=== PATIENT | male | born 1965 | race Caucasian/White ===

== ENCOUNTER 2017-09-03 11:57 | Inpatient (IN) | payer OTHER ==
[2017-09-03 12:15] LABS: BASO # 0.1 10^3/uL (0.0-0.2); BASO % 0.5 % (0.0-1.0); EOS # 0.2 10^3/uL (0.0-0.50); EOS % 1.7 % (0.0-3.0); HEMATOCRIT 48.3 % (42.0-52.0); HEMOGLOBIN 16.6 g/dl (13.5-17.5); IMMATURE GRANULOCYTE % 1.1 % (0-3.0); LYMPH # 2.3 10^3/uL (1.5-4.5); LYMPH % 22.7 % (24.0-44.0); MEAN CORPUSCULAR HEMOGLOBIN 33.1 pg (27.0-33.0); MEAN CORPUSCULAR HGB CONC 34.4 g/dl (32.0-36.5); MEAN CORPUSCULAR VOLUME 96.4 fl (80.0-96.0); MONO # 0.8 10^3/uL (0.0-0.8); MONO % 7.7 % (0.0-5.0); NEUTROPHILS # 6.8 10^3/uL (1.8-7.7); NEUTROPHILS % 66.3 % (36.0-66.0); PLATELET COUNT, AUTOMATED 168 10^3/uL (150-450); RED BLOOD COUNT 5.01 10^6/uL (4.30-6.10); RED CELL DISTRIBUTION WIDTH 13.3 % (11.5-14.5); WHITE BLOOD COUNT 10.3 10^3/uL (4.0-10.0)
[2017-09-03] MEDS: NS 1,000 ML IV ×2 (12:17→14:00)
[2017-09-03 12:32] LABS: INR 0.92; PROTHROMBIN TIME 12.4 SECONDS (12.4-14.5)
[2017-09-03 12:41] LABS: ALBUMIN 3.5 GM/DL (3.2-5.2); ALKALINE PHOSPHATASE 79 U/L (45-117); ALT/SGPT 45 U/L (12-78); ANION GAP 13 MEQ/L (8-16); AST/SGOT 47 U/L (7-37); BILIRUBIN,DIRECT 0.1 MG/DL (0.0-0.2); BILIRUBIN,TOTAL 0.5 MG/DL (0.2-1.0); BLOOD UREA NITROGEN 5 MG/DL (7-18); CALCIUM LEVEL 8.5 MG/DL (8.5-10.1); CARBON DIOXIDE LEVEL 23 MEQ/L (21-32); CHLORIDE LEVEL 106 MEQ/L (98-107); CREATININE FOR GFR 0.81 MG/DL (0.70-1.30); GLOMERULAR FILTRATION RATE > 60.0 (>56); GLUCOSE, FASTING 109 MG/DL (70-100); LIPASE 59 U/L (73-393); POTASSIUM SERUM 3.5 MEQ/L (3.5-5.1); SODIUM LEVEL 142 MEQ/L (136-145)
[2017-09-03] MEDS ORDERED: ISOVUE-370 76% 100ML VIAL (Q9967) As Ordered (12:46)
[2017-09-03] MEDS: HYDROmorphone HCL 1 MG/ML SYRINGE (J1170) IV ×2 (14:42→16:30)
[2017-09-03] MEDS ORDERED: MORPHINE 4 MG/ML 1ML VIAL/SYRINGE (J2270) IV ×2 (15:15)
[2017-09-03] MEDS ORDERED: ONDANSETRON 4MG/2ML VIAL (J2405) IV (15:15)
[2017-09-03] MEDS ORDERED: PERCOCET 5MG/325MG TAB PO ×2 (15:15→19:45)
[2017-09-03] MEDS ORDERED: LORazepam 2 MG TAB PO (15:30)
[2017-09-03] MEDS: ceFAZolin 2 GM/D5W 50 ML IV BAG (J0690 PER 500MG) As Ordered (17:07)
[2017-09-03] MEDS ORDERED: MIDAZOLAM INJ 2 MG/2 ML VIAL (J2250) As Ordered (17:33)
[2017-09-03] MEDS ORDERED: ONDANSETRON 4MG/2ML VIAL (J2405) As Ordered ×2 (17:33→19:50)
[2017-09-03] MEDS ORDERED: NEOSTIGMINE 10 MG/10 ML VIAL (J2710) As Ordered (17:33)
[2017-09-03] MEDS ORDERED: LIDOCAINE 2% INJ 100 MG/5 ML SDV (FOR ANES.) As Ordered (17:33)
[2017-09-03] MEDS ORDERED: GLYCOPYRROLATE INJ 0.2 MG/ML 2 ML VIAL As Ordered (17:33)
[2017-09-03] MEDS ORDERED: dexameTHASONE 4 MG/ML 1ML VIAL (J1100) As Ordered (17:33)
[2017-09-03] MEDS ORDERED: PHENYLephrine HCL 500 MCG/5 ML (100MCG/ML) SYRINGE (J2370) As Ordered (17:33)
[2017-09-03] MEDS ORDERED: fentaNYL 250 MCG/5 ML INJECTION (J3010) As Ordered (17:33)
[2017-09-03] MEDS ORDERED: ePHEDrine SULFATE 25 MG/5 ML(5MG/ML) SYRINGE As Ordered (17:33)
[2017-09-03] MEDS ORDERED: PROPOFOL 200 MG/20 ML VIAL As Ordered (17:33)
[2017-09-03] MEDS ORDERED: ROCURONIUM BROMIDE 50 MG/5 ML VIAL As Ordered (17:33)
[2017-09-03] MEDS ORDERED: METOCLOPRAMIDE INJ 10MG/2ML VIAL (J2765) As Ordered (17:33)
[2017-09-03] MEDS: ceFAZolin 1GM INJ (J0690 PER 500MG) As Ordered (17:40)
[2017-09-03] MEDS ORDERED: HYDROmorphone HCL 2 MG/ML 1ML VIAL (J1170) As Ordered (17:44)
[2017-09-03] MEDS: BUPIVACAINE/EPIN 0.5% 30 ML VIAL As Ordered (19:06)
[2017-09-03] MEDS: ceFAZolin SOD 2 GM in D5W MINI-BAG PLUS 50 ML IV (19:06)
[2017-09-03] MEDS ORDERED: fentaNYL 100 MCG/2 ML INJECTION (J3010) IV (19:45)
[2017-09-03] MEDS ORDERED: MORPHINE 10 MG/ML 1ML VIAL (J2270) IV (19:45)
[2017-09-03] MEDS: ONDANSETRON 4MG/2ML VIAL (J2405) IV (19:52)
[2017-09-03] MEDS: LR 1,000 ML IV (20:30)
[2017-09-03] MEDS: DOCUSATE SODIUM 100 MG CAP PO (21:29)
[2017-09-03] MEDS: PERCOCET 5MG/325MG TAB PO (21:29)
[2017-09-03] MEDS: THIAMINE 100 MG TAB PO (21:29)
[2017-09-03] MEDS ORDERED: PILL CRUSHER/CUTTER 1 EACH XX (22:45)
[2017-09-03] MEDS: ceFAZolin SOD 1 GM in D5W MINI-BAG PLUS 50 ML IV (23:33)
[2017-09-04] MEDS: KETOROLAC 30 MG/ML VIAL (J1885) IV ×3 (01:37→23:20)
[2017-09-04] MEDS: PERCOCET 5MG/325MG TAB PO ×3 (05:21→21:16)
[2017-09-04 07:04] LABS: BASO % 0.1 % (0.0-1.0); HEMATOCRIT 34.4 % (42.0-52.0); IMMATURE GRANULOCYTE % 0.4 % (0-3.0); LYMPH # 0.5 10^3/uL (1.5-4.5); LYMPH % 4.5 % (24.0-44.0); MEAN CORPUSCULAR HGB CONC 34.6 g/dl (32.0-36.5); MEAN CORPUSCULAR VOLUME 95.3 fl (80.0-96.0); MONO # 1.2 10^3/uL (0.0-0.8); MONO % 10.2 % (0.0-5.0); NEUTROPHILS # 9.9 10^3/uL (1.8-7.7); NEUTROPHILS % 84.8 % (36.0-66.0); PLATELET COUNT, AUTOMATED 130 10^3/uL (150-450); RED BLOOD COUNT 3.61 10^6/uL (4.30-6.10); RED CELL DISTRIBUTION WIDTH 13.1 % (11.5-14.5); WHITE BLOOD COUNT 11.7 10^3/uL (4.0-10.0)
[2017-09-04 07:13] LABS: HEMOGLOBIN 11.9 g/dl (13.5-17.5)
[2017-09-04] MEDS: DOCUSATE SODIUM 100 MG CAP PO ×3 (09:00→21:35)
[2017-09-04] MEDS: THIAMINE 100 MG TAB PO ×2 (09:00→21:16)
[2017-09-04] MEDS: ENOXAPARIN 30 MG/0.3 ML SYR (J1650) SC (09:00)
[2017-09-04] MEDS: MULTIVITAMINS/MINERALS THERAP 1 TAB PO (09:00)
[2017-09-04] MEDS: MIRALAX *UNIT DOSE* 17GM PACKET PO (09:00)
[2017-09-04] MEDS: FOLIC ACID 1 MG TAB PO (09:00)
[2017-09-04] MEDS: MOM 30ML SUSPENSION UDC PO (09:00)
[2017-09-04] MEDS: CALCIUM CARBONATE 500 MG CHEW U/D PO (23:46)
[2017-09-05] MEDS: PERCOCET 5MG/325MG TAB PO ×2 (03:31→10:04)
[2017-09-05] MEDS: DOCUSATE SODIUM 100 MG CAP PO (08:11)
[2017-09-05] MEDS: MIRALAX *UNIT DOSE* 17GM PACKET PO (08:11)
[2017-09-05] MEDS: MOM 30ML SUSPENSION UDC PO (08:13)
[2017-09-05] MEDS: THIAMINE 100 MG TAB PO (08:13)
[2017-09-05] MEDS: FOLIC ACID 1 MG TAB PO (08:13)
[2017-09-05] MEDS: MULTIVITAMINS/MINERALS THERAP 1 TAB PO (08:13)
[2017-09-05] MEDS: ENOXAPARIN 30 MG/0.3 ML SYR (J1650) SC (08:19)
[2017-09-05] MEDS ORDERED: KETOROLAC TROMETHAMINE 10 MG TAB PO (08:30)
[2017-09-05] MEDS: CALCIUM CARBONATE 500 MG CHEW U/D PO (10:08)
== END 2017-09-05 16:15 | disposition home or self-care (01) | DRG 308 ==
LOC: M ED 11:57 → M ED INP 15:13 → M MS5PR 20:30
PROC: 0QS Lower Bones, Reposition (ICD-10-PCS; principal; 2017-09-03 17:07)
DX: S72.22XA Displaced subtrochanteric fracture of left femur, initial encounter for closed fracture (principal); S32.018A Other fracture of first lumbar vertebra, initial encounter for closed fracture; Z88.1 Allergy status to other antibiotic agents; W17.89XA Other fall from one level to another, initial encounter; Y92.009 Unspecified place in unspecified non-institutional (private) residence as the place of occurrence of the external cause; F17.200 Nicotine dependence, unspecified, uncomplicated

== ENCOUNTER 2017-10-05 13:27 | Outpatient (RCR) | payer OTHER | END 2017-10-10 | LOC: M PT 13:27 | DX: Z47.89 Encounter for other orthopedic aftercare (principal); S72.22XD Displaced subtrochanteric fracture of left femur, subsequent encounter for closed fracture with routine healing | CPT/HCPCS: 97110 ==

== ENCOUNTER 2017-10-11 13:43 | Outpatient (RCR) | payer OTHER | END 2017-11-10 | LOC: M PT 10-16 13:45 | DX: Z47.89 Encounter for other orthopedic aftercare (principal); S72.22XD Displaced subtrochanteric fracture of left femur, subsequent encounter for closed fracture with routine healing | CPT/HCPCS: 97010 ==

== ENCOUNTER → 2018-08-29 | Outpatient (REF) | payer OTHER ==
[~2018-08-29] MED LIST: PERC5TAB12 PO; XARE10TA PO
[2018-08-29 18:13] LABS: BLOOD UREA NITROGEN 2 MG/DL (7-18); CREATININE FOR GFR 0.62 MG/DL (0.70-1.30); GLOMERULAR FILTRATION RATE > 60.0 (>56)
== END ==
LOC: M LABDRAW1 17:05
PROVIDERS: ATTEND Physical Medicine & Rehabilitation
DX: M47.816 Spondylosis without myelopathy or radiculopathy, lumbar region (principal)

== ENCOUNTER → 2018-09-04 | Outpatient (REF) | payer OTHER ==
[2018-09-04 16:25] LABS: C REACTIVE PROTEIN QUANTITATIV < 0.30 MG/DL (0.00-0.30); RHEUMATOID FACTOR QUANT < 10.0 IU/ML (<15.0)
[2018-09-10 15:13] LABS: ANTINUCLEAR ANTIBODIES DIRECT Negative (Negative); HLA-B27 Negative (.); Lyme Disease IgG Ab 18 kDa Ban Present (.); Lyme Disease IgG Ab 23 kDa Ban Present (.); Lyme Disease IgG Ab 28 kDa Ban Absent (.); Lyme Disease IgG Ab 30 kDa Ban Absent (.); Lyme Disease IgG Ab 39 kDa Ban Absent (.); Lyme Disease IgG Ab 41 kDa Ban Absent (.); Lyme Disease IgG Ab 45 kDa Ban Absent (.); Lyme Disease IgG Ab 58 kDa Ban Absent (.); Lyme Disease IgG Ab 66 kDa Ban Absent (.); Lyme Disease IgG Ab 93 kDa Ban Present (.); Lyme Disease IgG West Blot Int Negative (.); Lyme Disease IgG/IgM Antibodie <0.91 ISR (0.00-0.90); Lyme Disease IgM Ab 23 kDa Ban Absent (.); Lyme Disease IgM Ab 39 kDa Ban Absent (.); Lyme Disease IgM Ab 41 kDa Ban Absent (.); Lyme Disease IgM Ab Quantitati 1.66 index (0.00-0.79); Lyme Disease IgM West Blot Int Negative (.)
== END ==
LOC: M LABDRAW1 15:48
PROVIDERS: ATTEND Physician Assistant
DX: M47.816 Spondylosis without myelopathy or radiculopathy, lumbar region (principal)

== ENCOUNTER → 2020-09-15 | Outpatient (CLI) | payer MEDICAID, OTHER ==
--- NOTE | 2020-09-15 14:44 | REP ---
INDICATION: DDD COMPARISON: None. TECHNIQUE: AP, lateral, bilateral oblique and sunrise views. FINDINGS: Mild degenerative changes include subtle increased sclerosis along the tibial plateau with minimal joint space narrowing. Lateral and sunrise views demonstrate increased sclerosis and subtle fraying along the anterior patella suggesting mild patellar tendinosis. No acute fracture or dislocation. No effusion. IMPRESSION: Relatively mild age-related degenerative changes. <Electronically signed by García Mckee > 09/15/20 [id number]
--- NOTE | 2020-09-15 14:48 | REP ---
INDICATION: DDD COMPARISON: None. TECHNIQUE: AP, lateral, bilateral oblique, and coned-down views of the lumbar spine. FINDINGS: Alignment and lordosis maintained. Vertebral bodies are intact. No acute fracture/compression injury or subluxation. Disc spaces are relatively normal/age-appropriate. No obvious spondylolysis or spondylolisthesis. IMPRESSION: Essentially normal age-appropriate lumbosacral spine series. <Electronically signed by García Mckee > 09/15/20 [id number]
== END ==
LOC: M RAD 14:06
PROVIDERS: ATTEND Internal Medicine
DX: M54.5 Low back pain (principal); M25.562 Pain in left knee

== ENCOUNTER → 2022-10-07 | Outpatient (REF) | LOC: M PLAIMG 12:52 | PROVIDERS: ATTEND Internal Medicine | DX: R52 Pain, unspecified (principal) ==